=== PATIENT | male | born 1955 | race Caucasian/White ===

== ENCOUNTER 2023-01-16 11:55 | Outpatient (CLI) | payer MEDICARE ==
[2023-01-16 13:13] LABS: #Basophils 0.1 10x3/uL (0.0-0.2); #Eosinphils 0.1 10x3/uL (0.0-0.5); #Monocytes 0.6 10x3/uL (0.0-1.1); #Neutrophils 6.3 10x3/uL (1.5-8.4); %Basophils 0.6 % (0.0-2.0); %Eosinophils 0.6 % (0.0-6.0); %Lymphocytes 13.5 % (18.0-47.0); %Neutrophils 78.1 % (40.0-75.0); Hematocrit 38.1 % (38.8-50.0); Hemoglobin 11.6 g/dL (13.5-17.5); Mean Corpuscular HGB CONC 30.4 g/dL (32.0-36.0); Mean Corpuscular Hemoglobin 27.1 pg (27.0-33.0); Mean Platelet Volume 9.9 fl (7.4-10.4); Platelet Count 318 10x3/uL (150-450); RBC Distribution Width 15.6 % (11.5-14.5); Red Blood Cell (RBC) Count 4.28 10x6/uL (4.32-5.72); White Blood Cell (WBC) Count 8.1 10x3/uL (3.5-10.5)
[2023-01-16 13:15] LABS: Anion Gap 15 mmol/L (10-20); BUN (Urea Nitrogen) 25 mg/dL (8.4-25.7); Calc. Creatinine Clearance 0 mL/min (70-130); Calcium 9.4 mg/dL (7.8-10.44); Carbon Dioxide 22 mmol/L (23-31); Chloride 106 mmol/L (98-107); Estimated GFR 98; Glucose 138 mg/dL (80-115); Potassium 4.4 mmol/L (3.5-5.1); Prothrombin Time 11.2 sec (9.5-12.1); Sodium 139 mmol/L (136-145)
== END 2023-01-16 11:56 | disposition home or self-care (01) ==
LOC: LABBT 11:55
PROVIDERS: ATTEND Orthopaedic Surgery
DX: Z01.818 Encounter for other preprocedural examination (principal); M17.11 Unilateral primary osteoarthritis, right knee
CPT/HCPCS: 80048; 85025; 85610; 87081; 93005; 93010

== ENCOUNTER 2023-01-20 05:51 | Inpatient (IN) | payer MEDICARE ==
[2023-01-16 12:40] VITALS: BMI 26.5
[2023-01-20] MEDS ORDERED: Sodium Chloride 0.9% 100 ML ONE ×2 (06:08→06:55)
[2023-01-20] MEDS ORDERED: Vancomycin 1 GM/200 ML (FROZEN) BAG ONE (06:08)
[2023-01-20] MEDS ORDERED: Tranexamic Acid 1,000 MG/10 ML VIAL ONE (06:08)
[2023-01-20] MEDS ORDERED: Midazolam HCl 2 mg/2 ml Vial ONE ×2 (06:08→07:36)
[2023-01-20] MEDS ORDERED: fentaNYL PF 100 MCG/2 ML SYRINGE ONE (06:08)
[2023-01-20] MEDS ORDERED: Bupivacaine PF 0.5% 30 ML VIAL ONE ×2 (06:27→06:39)
[2023-01-20] MEDS ORDERED: Lidocaine 1% (PF) 30 ML VIAL ONE (06:39)
[2023-01-20] MEDS ORDERED: Lidocaine 1% PF 5 ML VIAL ONE (06:45)
[2023-01-20] MEDS ORDERED: ePHEDrine Sulfate 50 MG/10 ML VIAL ONE (06:45)
[2023-01-20] MEDS ORDERED: Bupivacaine HCl 0.5%/Epinephrine 1:200,000/PF 30 ml Vial ONE (06:45)
[2023-01-20] MEDS ORDERED: CEFAZOLIN 2 GM VIAL ONE (06:55)
[2023-01-20] MEDS ORDERED: Zolpidem Tartrate 5 MG TAB PO PRN ×2 (07:00→08:15)
[2023-01-20] MEDS ORDERED: diphenhydrAMINE 25 MG CAP PO PRN (07:00)
[2023-01-20] MEDS ORDERED: fentaNYL 50 mcg/mL 1 mL Vial SLOW IVP PRN ×2 (07:00→08:05)
[2023-01-20] MEDS ORDERED: Acetaminophen 325 MG TAB PO PRN (07:00)
[2023-01-20] MEDS ORDERED: Ondansetron PF 4 MG/2 ML Vial IVP PRN ×2 (07:00→08:15)
[2023-01-20] MEDS ORDERED: Promethazine HCl 25 MG/ML VIAL IM PRN ×2 (07:00→08:15)
[2023-01-20] MEDS ORDERED: Non-Formulary Item 1 EACH (Metformin Hcl [Metformin Hcl] 1,000 MG Tablet) PO SCH (08:00)
[2023-01-20] MEDS ORDERED: traMADol HCl 50 MG TAB PO PRN ×2 (08:15)
[2023-01-20] MEDS ORDERED: Ropivacaine 0.2% 550 ML 550 ML NERVE BLCK SCH (08:15)
[2023-01-20] MEDS ORDERED: Ondansetron HCl/PF 4 MG/2 ML Vial IVP PRN (08:51)
[2023-01-20] MEDS ORDERED: HYDROmorphone 2 MG/ML VIAL SLOW IVP PRN (08:51)
[2023-01-20] MEDS ORDERED: Lisinopril 5 MG TAB PO SCH (09:00)
[2023-01-20] MEDS ORDERED: Meperidine HCl/PF 25 MG/ML VIAL ONE (09:04)
[2023-01-20] MEDS ORDERED: Ketorolac Tromethamine 30 MG/ML VIAL ONE (09:20)
[2023-01-20] MEDS ORDERED: Ondansetron PF 4 MG/2 ML Vial ONE (09:20)
[2023-01-20] MEDS: Sodium Chloride 0.9% 1,000 ML IV SCH ×2 (10:25→16:57)
[2023-01-20] MEDS: Multivitamin W/ Minerals 1 TAB PO SCH (10:26)
[2023-01-20] MEDS: Pioglitazone HCl 15 MG TAB PO SCH (10:26)
[2023-01-20] MEDS: glipiZIDE 5 MG TAB PO SCH ×2 (10:26→21:20)
[2023-01-20] MEDS: Lisinopril 5 MG TAB PO SCH ×2 (10:26→21:19)
[2023-01-20] MEDS: metFORMIN 500 MG TAB PO SCH ×2 (10:26→17:03)
[2023-01-20] MEDS: Aspirin 81 mg Enteric Coated Tablet PO SCH ×2 (10:26→21:17)
[2023-01-20] MEDS: Senokot S 8.6-50 MG TAB PO SCH ×2 (10:26→21:17)
[2023-01-20] MEDS: Ferrous Gluconate 324 MG TAB PO SCH ×2 (10:26→21:19)
[2023-01-20] MEDS: Amlodipine 5 MG TAB PO SCH (10:27)
[2023-01-20] MEDS ORDERED: Ketorolac Tromethamine 30 MG/ML VIAL IVP SCH ×2 (12:00→14:00)
[2023-01-20] MEDS ORDERED: Polyethylene Glycol 3350 17 GM Packet PO SCH (14:00)
[2023-01-20] MEDS: CEFAZOLIN 2 GM in Sodium Chloride 0.9% 100 ML IVPB SCH ×2 (14:05→21:17)
[2023-01-20] MEDS: HYDROcodone/Acetaminophen 10/325 mg Tablet PO PRN (14:05)
[2023-01-20] MEDS: Ketorolac Tromethamine 30 MG/ML VIAL IVP SCH ×2 (14:05→21:20)
[2023-01-20] MEDS: Atorvastatin Calcium 10 MG TAB PO SCH (21:19)
[2023-01-21] MEDS: Sodium Chloride 0.9% 1,000 ML IV SCH ×3 (03:56→23:15)
[2023-01-21] MEDS: Ketorolac Tromethamine 30 MG/ML VIAL IVP SCH ×4 (03:58→20:14)
[2023-01-21] MEDS: HYDROcodone/Acetaminophen 10/325 mg Tablet PO PRN ×4 (04:02→20:14)
[2023-01-21 05:45] LABS: Hematocrit 30.6 % (42.0-52.0); Hemoglobin 9.5 g/dL (14.0-18.0); Mean Corpuscular Volume 90.3 fl (78.0-98.0); Mean Platelet Volume 9.8 fL (7.4-10.4); Platelet Count 232 10x3/uL (130-400); RBC Distribution Width 16.1 % (11.5-14.5); Red Blood Cell (RBC) Count 3.39 mill/uL (4.70-6.10); White Blood Cell (WBC) Count 8.1 10x3/uL (4.8-10.8)
[2023-01-21] MEDS: metFORMIN 500 MG TAB PO SCH ×2 (08:33→17:59)
[2023-01-21] MEDS: Pioglitazone HCl 15 MG TAB PO SCH (08:33)
[2023-01-21] MEDS: Aspirin 81 mg Enteric Coated Tablet PO SCH ×2 (08:33→20:06)
[2023-01-21] MEDS: Ferrous Gluconate 324 MG TAB PO SCH ×2 (08:33→20:07)
[2023-01-21] MEDS: Multivitamin W/ Minerals 1 TAB PO SCH (08:34)
[2023-01-21] MEDS: Senokot S 8.6-50 MG TAB PO SCH ×2 (08:34→20:06)
[2023-01-21] MEDS: glipiZIDE 5 MG TAB PO SCH ×2 (08:34→20:07)
[2023-01-21] MEDS: Amlodipine 5 MG TAB PO SCH (08:34)
[2023-01-21] MEDS: Lisinopril 5 MG TAB PO SCH ×2 (08:34→20:08)
[2023-01-21] MEDS: Polyethylene Glycol 3350 17 GM Packet PO SCH (08:48)
[2023-01-21] MEDS: Atorvastatin Calcium 10 MG TAB PO SCH (20:06)
[2023-01-22] MEDS: HYDROcodone/Acetaminophen 10/325 mg Tablet PO PRN ×2 (02:26→08:44)
[2023-01-22] MEDS: Ketorolac Tromethamine 30 MG/ML VIAL IVP SCH ×2 (02:28→08:45)
[2023-01-22] MEDS: Polyethylene Glycol 3350 17 GM Packet PO SCH (05:02)
[2023-01-22] MEDS: metFORMIN 500 MG TAB PO SCH (08:40)
[2023-01-22] MEDS: Multivitamin W/ Minerals 1 TAB PO SCH (08:40)
[2023-01-22] MEDS: Lisinopril 5 MG TAB PO SCH (08:41)
[2023-01-22] MEDS: Aspirin 81 mg Enteric Coated Tablet PO SCH (08:41)
[2023-01-22] MEDS: Pioglitazone HCl 15 MG TAB PO SCH (08:41)
[2023-01-22] MEDS: Amlodipine 5 MG TAB PO SCH (08:42)
[2023-01-22] MEDS: Senokot S 8.6-50 MG TAB PO SCH (08:42)
[2023-01-22] MEDS: Ferrous Gluconate 324 MG TAB PO SCH (08:43)
[2023-01-22 09:01] VITALS: BP 131/78; TEMP 98.6
[2023-01-22] MEDS: glipiZIDE 5 MG TAB PO SCH (09:04)
[2023-01-22] MEDS: Sodium Chloride 0.9% 1,000 ML IV SCH (09:04)
== END 2023-01-22 14:15 | disposition home health service (06) | DRG 470 ==
LOC: SDC 05:51 → SJJU 10:16 → SDC 11:32 → SJJU 11:35 → OBSVTOIN 11:35
PROVIDERS: ADMIT Orthopaedic Surgery; ATTEND Orthopaedic Surgery
PROC: 0SRC0J9 Replacement of Right Knee Joint with Synthetic Substitute, Cemented, Open Approach (ICD-10-PCS; principal; 2023-01-20)
PROC: 3E033XZ Introduction of Vasopressor into Peripheral Vein, Percutaneous Approach (ICD-10-PCS; 2023-01-20)
DX: M17.0 Bilateral primary osteoarthritis of knee (principal); I10 Essential (primary) hypertension; E11.9 Type 2 diabetes mellitus without complications; Z98.52 Vasectomy status; Z98.890 Other specified postprocedural states; Z87.891 Personal history of nicotine dependence
CPT/HCPCS: 36415; 36416; 85027; 96374; 96375; 96376; A4306; C1776; G0378; J1885; J2001; J2175; J2250; J2405; J2795; J3370-JW; J3490; S0020

== ENCOUNTER 2023-07-25 08:59 | Outpatient (CLI) | payer MEDICARE ==
[2023-07-25 10:11] LABS: #Basophils 0.1 10x3/uL (0.0-0.2); #Eosinphils 0.1 10x3/uL (0.0-0.5); #Monocytes 0.8 10x3/uL (0.0-1.1); #Neutrophils 4.5 10x3/uL (1.5-8.4); %Basophils 0.9 % (0.0-2.0); %Eosinophils 1.7 % (0.0-6.0); %Lymphocytes 22.4 % (18.0-47.0); %Monocytes 10.9 % (0.0-10.0); %Neutrophils 63.8 % (40.0-75.0); Hematocrit 39.5 % (38.8-50.0); Hemoglobin 12.7 g/dL (13.5-17.5); Mean Corpuscular HGB CONC 32.2 g/dL (32.0-36.0); Mean Corpuscular Hemoglobin 29.7 pg (27.0-33.0); Mean Corpuscular Volume 92.5 fl (81.2-95.1); Mean Platelet Volume 9.4 fl (7.4-10.4); Platelet Count 367 10x3/uL (150-450); RBC Distribution Width 15.1 % (11.5-14.5); Red Blood Cell (RBC) Count 4.27 10x6/uL (4.32-5.72)
[2023-07-25 10:24] LABS: Prothrombin Time 10.9 sec (9.5-12.1)
[2023-07-25 10:26] LABS: Anion Gap 16 mmol/L (10-20); BUN (Urea Nitrogen) 25 mg/dL (8.4-25.7); Calc. Creatinine Clearance 0 mL/min (70-130); Calcium 9.4 mg/dL (7.8-10.44); Carbon Dioxide 22 mmol/L (23-31); Chloride 107 mmol/L (98-107); Estimated GFR 95; Glucose 143 mg/dL (80-115); Potassium 4.7 mmol/L (3.5-5.1); Sodium 140 mmol/L (136-145)
== END 2023-07-25 09:00 | disposition home or self-care (01) ==
LOC: LABBT 08:59
PROVIDERS: ATTEND Orthopaedic Surgery
DX: Z01.818 Encounter for other preprocedural examination (principal); M17.12 Unilateral primary osteoarthritis, left knee
CPT/HCPCS: 80048; 85025; 85610; 87081; 93005; 93010

== ENCOUNTER 2023-07-29 06:06 | Inpatient (IN) | payer MEDICARE ==
[2023-07-29] MEDS ORDERED: Bupivacaine PF 0.5% 30 ML VIAL ONE ×2 (07:21→09:16)
[2023-07-29] MEDS ORDERED: fentaNYL 50 mcg/mL 1 mL Vial ONE (07:21)
[2023-07-29] MEDS ORDERED: Midazolam HCl 2 mg/2 ml Vial ONE (07:21)
[2023-07-29] MEDS ORDERED: Sodium Chloride 0.9% 100 ML ONE ×2 (07:35→09:11)
[2023-07-29] MEDS ORDERED: Vancomycin 1 GM/200 ML (FROZEN) BAG ONE (07:35)
[2023-07-29] MEDS ORDERED: Tranexamic Acid 1,000 MG/10 ML VIAL ONE (07:35)
[2023-07-29] MEDS ORDERED: Bupivacaine HCl 0.5%/Epinephrine 1:200,000/PF 30 ml Vial ONE (08:30)
[2023-07-29] MEDS ORDERED: fentaNYL 50 mcg/mL 1 mL Vial SLOW IVP PRN (08:42)
[2023-07-29] MEDS ORDERED: Ropivacaine 0.2% 550 ML 550 ML NERVE BLCK SCH (08:45)
[2023-07-29] MEDS ORDERED: Zolpidem Tartrate 5 MG TAB PO PRN (08:45)
[2023-07-29] MEDS ORDERED: Promethazine HCl 25 MG/ML VIAL IM PRN ×3 (08:45→10:21)
[2023-07-29] MEDS ORDERED: Ondansetron PF 4 MG/2 ML Vial IVP PRN ×2 (08:45→09:04)
[2023-07-29] MEDS ORDERED: Acetaminophen 325 MG TAB PO PRN (09:04)
[2023-07-29] MEDS ORDERED: diphenhydrAMINE 25 MG CAP PO PRN (09:04)
[2023-07-29] MEDS ORDERED: CEFAZOLIN 2 GM VIAL ONE (09:11)
[2023-07-29] MEDS ORDERED: PROPOFOL 40 ML ONE ×2 (09:12→10:06)
[2023-07-29] MEDS ORDERED: ePHEDrine Sulfate 50 MG/10 ML VIAL ONE (09:15)
[2023-07-29] MEDS ORDERED: fentaNYL PF 100 MCG/2 ML SYRINGE ONE (09:15)
[2023-07-29] MEDS ORDERED: HYDROmorphone 2 MG/ML VIAL SLOW IVP PRN (10:21)
[2023-07-29] MEDS ORDERED: Ondansetron HCl/PF 4 MG/2 ML Vial IVP PRN (10:21)
[2023-07-29] MEDS ORDERED: Ketorolac Tromethamine 30 MG (1 mL) VIAL ONE (12:25)
[2023-07-29] MEDS: Ketorolac Tromethamine 30 MG (1 mL) VIAL IVP SCH (12:26)
[2023-07-29] MEDS: Sodium Chloride 0.9% 1,000 ML IV SCH (12:27)
[2023-07-29] MEDS: HYDROcodone/Acetaminophen 10/325 mg Tablet PO PRN (15:53)
[2023-07-29] MEDS: metFORMIN 500 MG TAB PO SCH (17:23)
[2023-07-29] MEDS: CEFAZOLIN 2 GM in Sodium Chloride 0.9% 100 ML IVPB SCH (17:29)
[2023-07-29] MEDS: Atorvastatin Calcium 40 MG TAB PO SCH (20:44)
[2023-07-29] MEDS: Lisinopril 20 MG TAB PO SCH (20:44)
[2023-07-29] MEDS: Metoprolol Tartrate 25 MG TAB PO SCH (20:45)
[2023-07-29] MEDS: Aspirin 81 mg Enteric Coated Tablet PO SCH (20:45)
[2023-07-30] MEDS: Zolpidem Tartrate 5 MG TAB PO PRN (00:32)
[2023-07-30 06:38] LABS: Hematocrit 31.5 % (42.0-52.0); Mean Corpuscular HGB CONC 31.7 g/dL (32.0-36.0); Mean Corpuscular Volume 94.6 fl (78.0-98.0); Platelet Count 271 10x3/uL (130-400); RBC Distribution Width 15.2 % (11.5-14.5); Red Blood Cell (RBC) Count 3.33 mill/uL (4.70-6.10)
[2023-07-30] MEDS: Colchicine 0.6 MG TAB PO SCH (08:43)
[2023-07-30] MEDS: Ferrous Gluconate 324 MG TAB PO SCH (08:43)
[2023-07-30] MEDS: Amlodipine 10 MG TAB PO SCH (08:43)
[2023-07-30] MEDS: Pioglitazone HCl 45 MG TAB PO SCH (08:44)
[2023-07-30] MEDS: Terbinafine 250 MG TAB PO SCH (08:44)
[2023-07-30] MEDS: Senokot S 8.6-50 MG TAB PO SCH (08:44)
[2023-07-30] MEDS: Multivitamin W/ Minerals 1 TAB PO SCH (08:44)
[2023-07-30] MEDS: traMADol HCl 50 MG TAB PO PRN (08:45)
[2023-07-30] MEDS: HYDROcodone/Acetaminophen 10/325 mg Tablet PO PRN (12:14)
[2023-07-31] MEDS: traMADol HCl 50 MG TAB PO PRN (12:00)
[2023-08-01 07:40] VITALS: TEMP 98.2
[2023-08-01 09:19] VITALS: BMI 24.2
[2023-08-01 12:20] VITALS: BP 126/68
== END 2023-08-01 13:00 | disposition home or self-care (01) | DRG 470 ==
LOC: SDC 06:06 → SURG A 08:00 → OBSVTOIN 07-30 14:57
PROVIDERS: ADMIT Orthopaedic Surgery; ATTEND Orthopaedic Surgery
PROC: 0SRD0J9 Replacement of Left Knee Joint with Synthetic Substitute, Cemented, Open Approach (ICD-10-PCS; principal; 2023-07-29)
PROC: 3E033XZ Introduction of Vasopressor into Peripheral Vein, Percutaneous Approach (ICD-10-PCS; 2023-07-29)
DX: M17.12 Unilateral primary osteoarthritis, left knee (principal); E11.9 Type 2 diabetes mellitus without complications; I10 Essential (primary) hypertension; Z98.890 Other specified postprocedural states; Z98.52 Vasectomy status; Z96.651 Presence of right artificial knee joint; Z87.891 Personal history of nicotine dependence
CPT/HCPCS: 36415; 36416; 85027; 96365; 96375; 96376; A4306; C1776; G0378; J0665; J1885; J2250; J2704; J2795; J3010; J3370-JW; J3490